=== PATIENT | female | born 1945 | race Hispanic/Latino ===

== ENCOUNTER 2016-10-17 05:49 | Inpatient (IN) | payer OTHER, MEDICAID ==
[~2016-10-17] VITALS: Ht 127 cm; Wt 88.0 kg
[2016-10-17] VITALS (14 sets, daily range): BP systolic 106–159; BP diastolic 63–95; PULSE 60–94; RESP 13–18; O2SAT 94–99
[2016-10-17] MEDS: Lactated Ringer's 1,000 ML IV SCH ×3 (05:00→07:40)
[~2016-10-17 05:49] MED LIST: ACET325T51 PO; ASPI-973 PO; Bupivacaine Liposome 1.3% 20 mL Inj INFILTRATE SCH; HYDR12.5 PO; LOSA100T29 PO; METO100T3 PO; MIRT15TA6 PO
[2016-10-17] MEDS ORDERED: CeFAZolin 2 Gm/50 mL D5W IV Premix IV ONE (06:00)
[2016-10-17] MEDS ORDERED: Vancomycin Inj 1,000 MG in IV Premix 1 EACH IV ONE (06:00)
[2016-10-17] MEDS ORDERED: CeFAZolin Inj 2 gm / 50mL D5W IV ONE (06:17)
[2016-10-17] MEDS ORDERED: 0.9% Sodium Chloride 100 ML ONE ×2 (07:22→07:23)
[2016-10-17] MEDS ORDERED: Tranexamic Acid 100 mg/mL 10 mL Inj ONE ×2 (07:22→07:23)
[2016-10-17] MEDS ORDERED: Bupivacaine-MPF 0.5% W/EPI 30 mL Inj INFILTRATE ONE (08:40)
[2016-10-17] MEDS ORDERED: 0.9% Sodium Chloride 10 mL Inj INFILTRATE ONE (08:40)
[2016-10-17] MEDS ORDERED: Lactated Ringer's 500 ML IV PRN (08:43)
[2016-10-17] MEDS ORDERED: Lactated Ringer's 1,000 ML IV SCH (08:43)
--- NOTE | 2016-10-17 08:43 | PCM.HPANE ---
Patient Data Date of Service: October 17, 2016 (0710) Surgeon Admitting Provider: Attending Provider:Chavez Cordero DO Primary Care Physician:Jessica Mariscal DO Other Provider:Grace Law Anesthesia Reason for Visit Right Knee Arthritis Ht/WT & BMI Height (Feet): 4 Height (Inches): 8.00 Weight (Kilograms): 64.860 Body Mass Index 32.00 Allergies Coded Allergies: No Known Allergies (Unverified , 10/11/16) Past Anesthesia History Anesthesia History: Denies:: Anesthesia Reactions Diabetes History Hx Diabetes?: No Medications Blood Thinner: Aspirin Hypertension Medication: Yes Home Meds Incl Beta Daksha: Yes Date Beta Daksha Taken: October 17, 2016 Time Beta Daksha Taken: 05 Reported Medications Mirtazapine 15 Mg [id number] Mg PO HS Ref 0 10/11/16 Metoprolol Tartrate 100 Mg [id number] Mg PO BID 30 Days Ref 0 10/11/16 Losartan Potassium 100 Mg Dosfzz260 Mg PO DAILY 10/11/16 Hydrochlorothiazide 12.5 Mg Svudkyy82.5 Mg PO DAILY 30 Days Ref 0 10/11/16 Aspirin 81 Mg Aepetw90 Mg PO DAILY Ref 0 10/11/16 Acetaminophen 325 Mg [id number] Mg PO Q4H PRN For Pain Ref 0 10/11/16 History History of ENT Problems?: No HEENT History: Denies:: Abnormal Airway Cataracts Difficult Intubation Dysphagia Glaucoma Hearing Problem Sinus Problem TMJ Denture Type: Partial- Upper Teeth Condition: Within Normal Limits Hx of Heart Problems?: Yes Cardiovascular History: Positive for:: Hypertension Hx of Respiratory Problem?: No Respiratory History: Denies:: Oxygen Administration Use of C-PAP Machine Hx Neurologic Problems?: No Hx of GI Problems?: No Hx of Problems?: No Female Hx: Denies:: Currently (hysterectomy) Hx Musculoskeletal Problems?: Yes Musculoskeletal History: Positive for:: Musculoskeletal Trauma (right knee current admission problem) Osteoarthritis Hx of Psycho/Social Problems?: Yes Psycho Social History: Positive for:: Anxiety Hx Depression Hx Surgeries?: Yes (hysterectomy) Hx Any Other Health Problems?: Yes Other History: Denies:: Cancer Thyroid Disease Hx Diabetes: No Hx Alcohol Use: NoHx Substance Use: NoHave You Smoked inLast 12 mo: No Stop/Bang S-Snoring: Do You Snore Loudly: No T-Tired: feel tired, fatigued: No O-Obsered: Observed not breath: No P-Blood Pressure: treated: Yes B- Body Mass Index > 35 kg/m2: No A- Age over 50: Yes N- Neck Large Circumference: No G- Gender Male: No LUIS ALBERTO Total Score: 2 Risk Assessment Category Category 1A: Patient has history of documented sleep apnea, and HAS NOT received any narcotic, sedative or anesthesia administration during this stay. Category 1B: Patient has history of documented sleep apnea, and HAS received any narcotic , sedative or anesthesia administration during this stay Category 2: Patient has SUSPECTED Obstructive Sleep Apnea, and HAS received any narcotic , sedative or anesthesia administration during this stay. Category 3: Patient has SUSPECTED Obstructive Sleep Apnea and HAS NOT received narcotic, sedative or anesthesia administration during this stay. Category 4: Outpatient in Procedural Areas with known sleep apnea or who screen positive for High Risk via the STOP/BANG questionnaire. Exam Exam Vital Signs Vital Signs Date Time Temp Pulse Resp B/P Pulse Ox O2 Delivery O2 Flow Rate FiO2 10/17/16 06:30 36.5 60 18 159/75 98 Room Air General Appearance: Alert, Oriented X3, Cooperative, No Acute Distress HEENT/AIRWAY: MP 2 Lungs: Clear to Auscultation Heart: Exam Unremarkable Meds/Labs/Diagnostics Admission Meds Current Medications Lactated Ringer's 1,000 ml @ 120 mls/hr Q8H20M IV Last administered on 05:53; Start 10/17/16 at 05:00; Stop 10/17/16 at 13:19 Vancomycin/0.9 % Sod Chloride/ Premix (Vancomycin Inj/ IV Premix) 200 ml @ 0 mls /hr PREOP ONCE IV Last administered on 10/17/16 06:25; Start 10/17/16 at 06:00 ; Stop 10/17/16 at 06:01; Status DC Plan Impression Patient chart reviewed, patient interviewed and anesthestic plan with risks, benefits, and alternatives discussed, and informed consent obtained. ASA Physical Status: ASA2 Mod Systemic Disease Anesthetic Plan: Regional Block (adductor canal), SAB Bene/Risks/Altern/Consents: Yes HP Complete Prior to Induction: Yes Alvin Whatley MD October 17, 2016 08:43
[2016-10-17] MEDS ORDERED: fentaNYL-PF 50 mCg/mL 2 mL Inj IVPUSH PRN (08:45)
[2016-10-17] MEDS ORDERED: Ondansetron 2 mg/mL 2 mL Inj IVPUSH PRN ×2 (08:45→11:05)
[2016-10-17] MEDS ORDERED: EPHEDrine Sulfate 50 mg/mL Inj IVPUSH PRN (08:45)
[2016-10-17] MEDS ORDERED: Phenylephrine 10,000 mCg/mL Inj IVPUSH PRN (08:45)
[2016-10-17] MEDS ORDERED: MetoCLOpramide 5 mg/mL 2 mL Inj IVPUSH PRN (08:45)
[2016-10-17] MEDS ORDERED: HYDROmorphone 1 mg/mL Inj IVPUSH PRN (08:45)
[2016-10-17] MEDS ORDERED: Dexamethasone 4 mg/mL Inj IVPUSH PRN (08:45)
[2016-10-17] MEDS ORDERED: Lactated Ringer's 1,000 ML IV ONE (10:32)
[2016-10-17] MEDS ORDERED: Ketorolac 15 mg/mL Inj IVPUSH PRN (11:05)
[2016-10-17] MEDS ORDERED: Magnesium Hydroxide 10 mL Oral Concentration PO PRN (11:05)
[2016-10-17] MEDS ORDERED: Polyethylene Glycol (PEG) 17 Gm Powder PO PRN (11:05)
[2016-10-17] MEDS ORDERED: diphenhydrAMINE 25 mg Capsule PO PRN (11:05)
[2016-10-17] MEDS ORDERED: HYDROmorphone 2 mg/mL Inj IVPUSH PRN (11:05)
--- NOTE | 2016-10-17 11:53 | OP ---
[address] [address] OPERATIVE REPORT PATIENT: NATASHA SPENCER : 1945 MR#: [id number] ADMIT: 10/17/2016 JOB ID: [id number] DATE OF SURGERY: 10/17/2016 PREOPERATIVE DIAGNOSIS(ES): Right knee degenerative joint disease, severe, with severe varus deformity and tibial bone loss. POSTOPERATIVE DIAGNOSIS(ES): Right knee degenerative joint disease, severe, with severe varus deformity and tibial bone loss. PROCEDURE: Right total knee revision type arthroplasty. SURGEON: Chavez Cordero DO. SCHOOL COUNSELLOR: Beronica Heath PA-C. INDICATIONS: The patient is a 71-year-old female, who recently presented from [place] with severe right knee deformity with a very difficult time with ambulation. We discussed treatment options for this. She had been offered a knee fusion for her severe deformity, and she wished a second opinion. She had deformity with uncontained medial defect of the tibia with a 1 cm defect below the level of the fibular head and a severe varus thrust gait. We discussed treatment options for this, and I recommended a revision type total knee arthroplasty using stem and augments. We discussed the risks, benefits and possible complications of surgery with an historic interpreter. All questions were answered, and she and her family wished to proceed. We discussed that she is at increased risk for perioperative complications given the increased complexity and severity of this surgical procedure over a standard total knee arthroplasty. A surgical elastic knitter was required for the successful completion of this procedure. PROCEDURE IN DETAIL: The patient was brought to the operating room. She was given a preoperative antibiotic and spinal anesthetic. The right lower extremity was sterilely prepped and draped. A surgical time-out was performed. A tourniquet was used for hemostasis. An incision was made over the anteromedial knee. Dissection was carefully carried through subcutaneous tissue. Electrocautery was used for hemostasis. A split was then made in the quad tendon leaving a cuff of tissue for repair. This was taken along the medial retinaculum and down onto the proximal medial tibial face. The patella was everted and the knee was taken into flexion. She was noted to have a significant rotational deformity of the femur, as well as a significant uncontained defect of the proximal medial tibia. An intramedullary fabricio was placed into the femur, and the distal femoral cut was performed taking the standard resection for a TC3 revision type femur. The tibia was addressed, and I made an initial intramedullary drill hole and then reamed this. However, it became clear that this hole was too posterior and actually reamed out the back of the tibia. Therefore, a new starting hole was placed more anteriorly. The patient had a very, very small tibia, and care was taken with Alverda and curette to ensure that we were wholly within the bone. This was reamed but could only be reamed up to a 10. Using the intramedullary cutting guide, the tibial resection was performed at just below the articular surface on the lateral side. However, this was inadequate, and an additional 4 mm was resected. Then, some additional resection was made laterally, as well as medially, to accommodate a 5 mm augment and to get to the bottom of her defect on the medial side. We then took the opening reamer proximally and the keel punch and trialed with the 1.5, and ultimately the size 1 tibia with a 5 mm augment and 75-mm press-fit stem. Then the rotation was set for the femur based on the tibia for the TC3 femoral component. The femoral cutting jig was pinned into position. The cuts were performed. Next, the box cut was performed. It was very difficult to perform the box cut and had to be performed essentially free hand, as the jig was simply too large for her very small bone. This was accomplished, and the knee was then trialed with polys working our way up to the 22.5, which allowed for full flexion and full extension with equal gaps medially and laterally, and excellent correction of her deformity. The patella was next resurfaced, cut from an initial thickness of 22 to a thickness of 14. Then, a 32 mm patellar button was chosen, drilled for, trialed and had excellent tracking. The bony surfaces were washed and dried, and the components were then cemented into position beginning with the DePuy Sigma MBT tray 1 tibia with a 5 mm augment and 75 mm stem, followed by the 22 mm TC3 poly and the size 2 TC3 femur, as well as 32 mm patellar button. All excess cement was removed, and the knee was held in extension while the cement was allowed to polymerize. The tourniquet was let down. Electrocautery was used for hemostasis. The wound was copiously irrigated and then closed with #1 Surgilon and 0 Vicryl. The subcu was closed with 2-0 and 3-0 Vicryl, and the skin was closed with a running subcuticular 3-0 V-Loc. Marcaine mixed with Exparel and saline was added as an adjunct local anesthetic. Sterile dressings were applied. This procedure took approximately twice the tourniquet time as a standard total knee arthroplasty. Blood loss was 50 cc. POSTOPERATIVE PROTOCOL: Have the patient weightbear to tolerance, use a walker as needed for ambulation and will plan to use aspirin for DVT prophylaxis and [place] 5/325 for pain.
[2016-10-17 12:01] LABS: APPEARANCE,URINE HAZY (CLEAR,HAZY); COLOR,URINE STRAW (YELLOW); OCCULT BLOOD,URINE TRACE (NEGATIVE); PH,URINE 6.5 (5.0-8.0); UROBILINOGEN,URINE NORMAL (NORMAL)
--- NOTE | 2016-10-17 12:08 | DRSVH ---
PROCEDURE: X-RAY RIGHT KNEE, ONE OR TWO VIEWS ([id number]) INDICATIONS: post op TECHNIQUE: 2 view(s) of the knee acquired. COMPARISON: [facility], CR, XR KNEE BILATERAL STANDING UP, 08/31/2016, 7:55. [facility], CR, XR KNEE 3VW RT, 08/22/2016, 16:48. FINDINGS: Bones: Patient is status post knee joint arthroplasty. Hardware components are in expected position s. Visualized bony structures are intact. Soft tissues: Overlying postoperative changes are noted. There is a large knee joint effusion conta ining air. Extensive soft tissue edema is present. No unexpected radiopaque foreign bodies are iden tified. IMPRESSION: Expected postoperative changes related to a total right knee arthroplasty. No periprosth etic fractures are evident. Dictated by: Kingsley Nunes M.D. on 10/17/2016 at 11:06 Approved by: Kingsley Nunes M.D. on 10/17/2016 at 11:07
--- NOTE | 2016-10-17 12:31 | PCM.ANEP1 ---
Post Anesthesia Phase 1 PACU Phase 1 Assessment Date of Service: October 17, 2016 (0710) Vital Signs Vital Signs Date Time Temp Pulse Resp B/P Pulse Ox O2 Delivery O2 Flow Rate FiO2 10/17/16 12:05 66 13 119/70 95 Room Air 10/17/16 11:50 69 15 122/71 96 Room Air 10/17/16 11:35 71 16 109/75 94 Room Air 10/17/16 11:30 72 14 106/64 96 Room Air 10/17/16 11:25 70 13 106/64 99 Simple Mask 8 10/17/16 11:20 36.4 69 13 106/63 99 Simple Mask 8 10/17/16 06:30 36.5 60 18 159/75 98 Room Air Anesthetic Administered: Regional Block, SAB Level of Alertness: Sleepy, easy to arouse VALE's with Equal Strength: Yes Pain: No Nausea or Vomiting: No Cardiovascular Function and Hy: No Oxygen Delivery: Simple Mask Lungs: Clear to Auscultation Complications: No Alvin Whatley MD October 17, 2016 12:31
[2016-10-17] MEDS ORDERED: EPHEDrine/NS 5 mg/mL 5 mL Syringe ONE (12:47)
[2016-10-17] MEDS ORDERED: Propofol 10,000 mCg/mL 20 mL Inj ONE (12:47)
[2016-10-17] MEDS ORDERED: fentaNYL-PF 50 mCg/mL 2 mL Inj ONE (12:47)
[2016-10-17] MEDS: 0.9% Sodium Chloride 1,000 ML IV SCH ×2 (13:00→21:04)
--- NOTE | 2016-10-17 14:41 | NUR ---
Post op Pt arrived on [facility] at 1340, geophysics professor used for Post op assessment, no complaints of pain/nausea/vomiting, some feeling in right leg. esvin wrap C/D/I. oriented to room and call light, family now at bedside, see post op assessment, care continued.
--- NOTE | 2016-10-17 15:55 | NUR ---
Evaluation completed. Please go to "Notes" then click on "Assessments and Notes" (bottom left corner of screen). Then select appropriate discipline tab on top of screen.
[2016-10-17] MEDS: Sodium Chloride LOK Flush 10 mL Syringe IV SCH (16:30)
[2016-10-17] MEDS: CeFAZolin Inj 2 GM in IV Premix 1 EACH IV SCH (17:03)
[2016-10-17] MEDS: HYDROcodone-APAP 5-325 mg Tablet PO PRN ×2 (17:07→23:49)
--- NOTE | 2016-10-17 19:18 | NUR ---
Pain Pt stated she was starting to have a little pain in her leg, administered 1 [place], pt stated pain gone
[2016-10-17] MEDS: Senna-Docusate 8.6-50 mg Tablet PO SCH (20:33)
[2016-10-18 00:19] VITALS: BP 123/74; PULSE 105; RESP 17; O2SAT 97
[2016-10-18] MEDS: Sodium Chloride LOK Flush 10 mL Syringe IV SCH ×3 (00:30→16:30)
[2016-10-18] MEDS: CeFAZolin Inj 2 GM in IV Premix 1 EACH IV SCH (00:48)
[2016-10-18] MEDS: 0.9% Sodium Chloride 1,000 ML IV SCH ×2 (00:48→15:27)
[2016-10-18] MEDS: hydrOXYzine Pamoate 25 mg Capsule PO PRN ×5 (02:54→22:04)
[2016-10-18] MEDS: HYDROcodone-APAP 5-325 mg Tablet PO PRN ×5 (02:55→22:04)
--- NOTE | 2016-10-18 03:55 | NUR ---
Pain Pt. denies pain yet in obvious discomfort with repositioning.Granddaughter who is a [employer] MAKER on [employer] here to interpret and states pt. waits to long/does not want to bother anyone.Plan agreed upon to med. routinely and po analgesia eff.VSS and ORTHOS WNL.Delroy. po fluids w/o c/o nausea and UOP qs via crowder.Lungs cl. bilat with RA sats in the mid to high 90s.Sleeping soundly at this time and resting more comfortably.Will cont. to monitor.
[2016-10-18 05:15] VITALS: BP 119/74; PULSE 101; RESP 17; O2SAT 97
[2016-10-18 07:25] LABS: BASOPHILS % (AUTO) 0.1 % (0-3); EOSINOPHILS % (AUTO) 0 % (0-5); Mean Corpuscular Hemoglobin 31.8 pg (27.0-35.0); Mean Corpuscular Volume 96.6 fL (81-100); NEUTROPHILS % (AUTO) 73.8 % (40-74); Platelet Count 195 bil/L (150-400)
--- NOTE | 2016-10-18 08:28 | PCM.PNORTH ---
Subjective Date of Service: October 18, 2016 Visit Information: Reason for Visit Right Knee Arthritis Surgery/Surgery Date RIGHT TOTAL KNEE 10/17/16 Post-Op Day # 1 Date of Admission: October 17, 2016 at 13:44 Hospital Day # Subjective Incisional pain. Her granddaughter who is a medical claims processor acts as automotive service consultant. Postop General: No Shortness of Breath, No Chest Pain, Good Appetite Pain Management: PO, Good Pain Control Objective Exam Objective Patient is seen sitting up in bed with family at bedside. Her granddaughter has been staying with her and ask as automotive service consultant. Vital Signs and I/O Vital Sign - Last Date Time Temp Pulse Resp B/P Pulse Ox O2 Delivery O2 Flow Rate FiO2 10/18/16 05:15 36.9 101 17 119/74 97 Room Air 10/17/16 11:25 8 Intake and Output 10/17/16 10/17/16 10/18/16 Cumulative From/Thru 15:00 23:00 07:00 10/11/16 11:32 - 10/18/16 05:51 Intake Total 1450 ml 1000 ml 2007 ml 4657 ml Output Total 250 ml 600 ml 800 ml 1650 ml Balance 1200 ml 400 ml 1207 ml 3007 ml Intake Oral 1000 ml 1000 ml IV Total 1450 ml 2007 ml 3657 ml Output Urine Total 200 ml 600 ml 800 ml 1600 ml Estimated Blood Loss 50 ml 50 ml # Bowel Movements 0 0 Lab & Micro Results Laboratory Tests Test 10/17/16 11:08 10/18/16 06:50 Urine Color Straw (YELLOW) Urine Appearance Hazy (CLEAR,HAZY) Urine pH 6.5 (5.0-8.0) Urine Specific [place] 1.010 (1.003-1.035) Urine Protein Negativemg/dL (NEG,TRACE) Urine Glucose (UA) Negativemg/dL (NEGATIVE) Urine Ketones Negativemg/dL (NEGATIVE) Urine Occult Blood Trace (NEGATIVE) Urine Nitrite Negative (NEGATIVE) Urine Bilirubin Negative (NEGATIVE) Urine Urobilinogen Normalmg/dL (NORMAL) Urine Leukocyte Esterase Negative (NEGATIVE) Urine RBC 3-10/hpf (0-2) Urine WBC 0-5/hpf (0-5) Urine Epithelial Cells Occasional/hpf (NONE-MOD) Urine Crystals None seen (NONE SEEN) Urine Bacteria None/hpf (NONE-FEW) Urine Hyaline Casts None/lpf (NONE) Urine Granular Casts None seen (NONE SEEN) Urine Waxy Casts None seen (NONE SEEN) Urine Red Blood Cell Casts None seen (NONE SEEN) Urine White Blood Cell Casts None seen (NONE SEEN) Urine Mucus None seen (None Seen) Urine Trichomonas None seen (NONE SEEN) Urine Yeast None (NONE SEEN) Urinalysis Comment None Urine Culture Reflexed Not indicated White Blood Count 7.1th/mm3 (3.8-10.1) Red Blood Count 2.64mil/mm3 (3.90-5.20) Hemoglobin 8.4g/dL (12.0-15.6) Hematocrit 25.5% (35.0-46.0) Mean Corpuscular Volume 96.6fL (81-100) Mean Corpuscular Hemoglobin 31.8pg (27.0-35.0) Mean Corpuscular Hemoglobin Concent 32.9% (32.0-37.0) Red Cell Distribution Width 12.3% (12.3-15.4) Platelet Count 195bil/L (150-400) Neutrophils (%) (Auto) 73.8% (40-74) Lymphocytes (%) (Auto) 13.0% (14-46) Monocytes (%) (Auto) 13.0% (4-12) Eosinophils (%) (Auto) 0% (0-5) Basophils (%) (Auto) 0.1% (0-3) Sodium Level 134mEq/L (134-144) Potassium Level 4.0mEq/L (3.5-5.2) Chloride Level 99mEq/L (97-108) Carbon Dioxide Level 23mmol/L (18-29) Blood Urea Nitrogen 13mg/dL (8-27) Creatinine 0.55mg/dL (0.57-1.00) Estimat Glomerular Filtration Rate 156mL/min (>59) Glucose Level 153mg/dL (60-99) Calcium Level 8.2mg/dL (8.5-10.1) Result Diagram: 10/18/16 0650 10/18/16 0650 General Appearance: Alert, Oriented X3, Cooperative, No Acute Distress Extremities: Distal Pulses Palpable, No Compartment Syndrom Noted, Thigh & Calf Soft/Nontender Postop Sensory Motor: Distal Motor Intact, NVI Distally SURGICAL WOUND : Wound Location/Description Dressing is clean, dry and intact Activity: Activity per PT, Ambulate with PT Catheters: Urethral 2 Way [place] Assessment & Plan Impression POD#1 status post right total knee arthroplasty Problems: Plan The patient underwent primary total knee arthroplasty with significant revision components due to large deficit of the tibia. Weightbearing: weightbearing as tolerated with front wheel walker DVT prophylaxis: EC aspirin 325 mg twice a day 6 weeks DC [place] today Physical therapy for transfers, progressive ambulation, therapeutic exercise Wound care: PA will change dressing on postop day 2 After dressing change, will place compression stockings. Due to short stature, patient may be able to use knee high stockings as thigh high Discharge plan: Discharge home tomorrow. Start outpatient physical therapy next week Follow-up plan: In [address] [facility] with PA for wound check and at [address] Cordero with x-rays Pain Management: Tylenol, Toradol, [place] 5 mg, Vistaril, Dilaudid IV VTE Prophylaxis: SCDs, Other (aspirin 325 mg twice a day) Resuscitation Status: CPR: Attempt Resuscitation Beronica Heath PA-C October 18, 2016 08:28
[2016-10-18] MEDS: Senna-Docusate 8.6-50 mg Tablet PO SCH ×2 (08:29→20:13)
[2016-10-18 09:44] VITALS: BP 98/62; PULSE 104; RESP 18; O2SAT 97
--- NOTE | 2016-10-18 16:06 | NUR ---
Evaluation completed. Please go to "Notes" then click on "Assessments and Notes" (bottom left corner of screen). Then select appropriate discipline tab on top of screen.
[2016-10-18 16:10] VITALS: BP 121/58; PULSE 71; RESP 18; O2SAT 93
--- NOTE | 2016-10-18 18:29 | NUR ---
Ambulation / Pain Pain controlled with 2 tabs Hydrocodone/APAP and Vistaril 25mg Q4hrs. Ambulating well SBA with FWW to bathroom with steady gait. Family plans on bringing in FWW with wheels for use.
[2016-10-18 20:10] VITALS: BP 113/63; PULSE 63; RESP 17; O2SAT 94
[2016-10-19] VITALS (7 sets, daily range): BP systolic 121–177; BP diastolic 63–92; PULSE 64–73; RESP 16–20; O2SAT 95–99
[2016-10-19] MEDS: Sodium Chloride LOK Flush 10 mL Syringe IV SCH ×3 (00:38→15:42)
--- NOTE | 2016-10-19 01:49 | NUR ---
Pain Pain well controlled with po analgesia.VSS and ORTHOS WNL.Dressing CDI.I&O qs.Up with FWW and moving well.Sleeping soundly at this time and resting comfortably.Will cont to monitor.
[2016-10-19] MEDS: 0.9% Sodium Chloride 1,000 ML IV SCH ×3 (01:56→23:04)
[2016-10-19] MEDS: HYDROcodone-APAP 5-325 mg Tablet PO PRN ×5 (02:16→21:52)
[2016-10-19] MEDS: hydrOXYzine Pamoate 25 mg Capsule PO PRN ×2 (02:16→06:48)
[2016-10-19 05:49] LABS: BASOPHILS % (AUTO) 0.4 % (0-3); EOSINOPHILS % (AUTO) 1.6 % (0-5); MONOCYTES % (AUTO) 14.7 % (4-12); Mean Corpuscular Volume 95.9 fL (81-100); NEUTROPHILS % (AUTO) 55.7 % (40-74); Platelet Count 180 bil/L (150-400)
--- NOTE | 2016-10-19 06:31 | PCM.PNORTH ---
Subjective Date of Service: October 19, 2016 Visit Information: Reason for Visit Right Knee Arthritis Surgery/Surgery Date RIGHT TOTAL KNEE 10/17/16 Post-Op Day # 2 Date of Admission: October 17, 2016 at 13:44 Hospital Day # Subjective Sterile Products Processor Luh is here with us this morning. Patient complains of nausea this morning. She is feeling a little better after a dose of Zofran, as long as she does not move around. She also complains of feeling weak and dizzy. Nurses report that her blood pressure is up today with systolic of 177. Patient's losartan were held yesterday. Patient ambulated 10- 15 feet with physical therapy yesterday. Postop General: No Shortness of Breath, No Chest Pain, Good Appetite Pain Management: PO, Good Pain Control Objective Exam Objective Patient is seen in bed. Her family is at bedside. Sourav from electrical estimator services is here with us this morning. She knew the patient from her surgical day. Vital Signs and I/O Vital Sign - Last Date Time Temp Pulse Resp B/P Pulse Ox O2 Delivery O2 Flow Rate FiO2 10/19/16 06:17 36.5 66 17 121/63 95 Room Air 10/17/16 11:25 8 Intake and Output 10/18/16 10/18/16 10/19/16 Cumulative From/Thru 15:00 23:00 07:00 10/11/16 11:32 - 10/19/16 06:17 Intake Total 440 ml 800 ml 5897 ml Output Total 250 ml 850 ml 2750 ml Balance 190 ml -50 ml 3147 ml Intake Oral 440 ml 800 ml 2240 ml IV Total 3657 ml Output Urine Total 250 ml 850 ml 2700 ml Estimated Blood Loss 50 ml # Bowel Movements 0 0 Lab & Micro Results Laboratory Tests Test 10/18/16 06:50 10/19/16 05:15 White Blood Count 7.1th/mm3 (3.8-10.1) 7.4th/mm3 (3.8-10.1) Red Blood Count 2.64mil/mm3 (3.90-5.20) 2.44mil/mm3 (3.90-5.20) Hemoglobin 8.4g/dL (12.0-15.6) 7.8g/dL (12.0-15.6) Hematocrit 25.5% (35.0-46.0) 23.4% (35.0-46.0) Mean Corpuscular Volume 96.6fL (81-100) 95.9fL (81-100) Mean Corpuscular Hemoglobin 31.8pg (27.0-35.0) 32.0pg (27.0-35.0) Mean Corpuscular Hemoglobin Concent 32.9% (32.0-37.0) 33.3% (32.0-37.0) Red Cell Distribution Width 12.3% (12.3-15.4) 12.5% (12.3-15.4) Platelet Count 195bil/L (150-400) 180bil/L (150-400) Neutrophils (%) (Auto) 73.8% (40-74) 55.7% (40-74) Lymphocytes (%) (Auto) 13.0% (14-46) 27.5% (14-46) Monocytes (%) (Auto) 13.0% (4-12) 14.7% (4-12) Eosinophils (%) (Auto) 0% (0-5) 1.6% (0-5) Basophils (%) (Auto) 0.1% (0-3) 0.4% (0-3) Sodium Level 134mEq/L (134-144) 132mEq/L (134-144) Potassium Level 4.0mEq/L (3.5-5.2) 3.8mEq/L (3.5-5.2) Chloride Level 99mEq/L (97-108) 97mEq/L (97-108) Carbon Dioxide Level 23mmol/L (18-29) 25mmol/L (18-29) Blood Urea Nitrogen 13mg/dL (8-27) 12mg/dL (8-27) Creatinine 0.55mg/dL (0.57-1.00) 0.53mg/dL (0.57-1.00) Estimat Glomerular Filtration Rate 156mL/min (>59) 162mL/min (>59) Glucose Level 153mg/dL (60-99) 121mg/dL (60-99) Calcium Level 8.2mg/dL (8.5-10.1) 8.2mg/dL (8.5-10.1) Result Diagram: 10/19/1651410/19/16514 General Appearance: Alert, Oriented X3, Cooperative, Mild Distress Extremities: Distal Pulses Palpable, No Compartment Syndrom Noted, Thigh & Calf Soft/Nontender Postop Sensory Motor: Distal Motor Intact, NVI Distally SURGICAL WOUND : Wound Location/Description Right knee: Surgical dressing is removed. Steri-Strips are intact. Wound is well approximated. There is moderate dried serous drainage on the bandage. There were a couple drops of serous drainage present. There is no ecchymosis or erythema. The wound was cleansed with hydrogen peroxide and dressed with Silverlon dressing, ABD pad and elastic bandage. Dressing & Drainage Status: Changed Activity: Activity per PT, Ambulate with PT Catheters: None Assessment & Plan Impression POD #2 Right total knee arthroplasty Problems: Plan Weightbearing: weightbearing as tolerated with front wheel walker DVT prophylaxis: EC aspirin 325 mg twice a day 6 weeks Patient is feeling weak and dizzy and her H&H has dropped since yesterday. She also has elevated blood pressure. I recommended transfusion of 1 unit of packed red blood cells. After much discussion patient consents to transfusion. Consent for transfusion was reviewed and signed. She also missed her diuretic this morning when she was nauseated. Now that her stomach is feeling better we will get her back on her usual medications. We will reinstate the losartan to help with her blood pressure. Physical therapy for transfers, progressive ambulation, therapeutic exercise, Patient is progressing well with therapy Wound care: PA changed dressing to Silverlon and AVD pad and elastic bandage. Elastic bandage pain be removed when compression stockings were placed. After dressing change, will place compression stockings. Due to short stature, patient may be able to use knee high stockings as thigh high Discharge plan: Discharge home tomorrow if medically stable. Start outpatient physical therapy next week Follow-up plan: In 2 weeks at [facility] with JOCELINE for wound check and at [address] Cordero with x-rays Pain Management: Zach Tom VTE Prophylaxis: SCDs, Other (aspirin 325 mg twice a day) Resuscitation Status: CPR: Attempt Resuscitation Bellerose TerraceBeronica Yeung PA-C October 19, 2016 06:31
--- NOTE | 2016-10-19 06:35 | PCM.DIORTH ---
Ortho Discharge Instruction Date of Service: October 19, 2016 Dates of Hospitalization Date of Hospital Admission October 17, 2016 at 13:44 Providers Admitting Physician: Chavez Cordero DO Primary Care Physician: Jessica Mariscal DO Attending Physician: Chavez Cordero DO Activity Discharge Activity-General: Be up and about, Balance rest and activity, Elevate & ice extremity, No driving while taking narcotic Right Lower Extremity: Weight Bearing as tolerated Discharge Assist Device: Front Wheeled Walker Dressing and Incisional Care Discharge Dressing Care: Keep dressing clean, dry & intact Discharge Hygiene: May shower (see instructions below), DO NOT soak incision under water, NO bathtub, hot tub or whirlpool Additional Instructions Discharge Instructions Weightbearing: weightbearing as tolerated with front wheel walker DVT prophylaxis: EC aspirin 325 mg twice a day 6 weeks Every hour of the day you are awake, get up and move - either do some walking or the exercises learned from therapy Push herself with bending and straightening the leg. It will be sore but it is good to push it with the bending. Wound care: change dressing every 2 days or sooner if needed. Do not remove the Steri Strips - we will remove them at the office in 2 weeks Shower instructions: the patient may shower if the wound has no drainage present x 24 hours. Wound may be uncovered to shower. Let soap and water run over the wound, pat dry and apply a new dressing. The compression stockings will hold the bandage in place. Wear compression stockings for 3-4 weeks. Start outpatient physical therapy next week Follow Up Plan Follow Up Plan Follow-up plan: In 2 weeks at [facility] with JOCELINE for wound check and at [address] Cordero with x-rays Call your provider for: Fever, Chills, Shortness of breath, Vomitting, Drainage at incision, Wound redness (that is spreading), Increasing pain (for no reason) Beronica Heath PA-C October 19, 2016 06:35
[2016-10-19] MEDS: Senna-Docusate 8.6-50 mg Tablet PO SCH ×2 (08:30→21:52)
[2016-10-19] MEDS ORDERED: diphenhydrAMINE 25 mg Capsule PO ONE (09:35)
[2016-10-19] MEDS ORDERED: 0.9% Sodium Chloride 250 ML ONE (11:04)
--- NOTE | 2016-10-19 17:33 | NUR ---
Social Work: Initial Assessment D: Per EMR review, pt is a 71 year old female admitted for Right Knee Arthritis. Pt is Coordinated Care Blind/Disabled with [facility] supplement. PCP is Jessica Early DO. NOK is Tosha Chahal, . Advanced directives not completed, pt declined AD info from admit nurse. Readmit score not entered at this time. CARPET MECHANIC met with pt and family at bedside with optical store manager. Sw role explained and contact info provided. Pt lives in [place] with her family in a single story home. Pt uses a cane and FWW at baseline but is otherwise I with ADLs. PT evaluation has been completed with recommendation for outpatient PT. Pt's family confirms that they have this arranged already for the pt. Pt's family will transport her when medically ready. They decline any other discharge needs or concerns. A: Pt who is I at baseline. P: Anticipate pt to discharge home via POV and outpatient PT; Family to transport. CARPET MECHANIC to continue to follow. ELIDIA Melchor Addendum: 10/19/16 at 1740 by EMMIE WYATT Amended: Links added.
--- NOTE | 2016-10-19 18:12 | NUR ---
BLOOD/POST-OP PROGRESS Patient consented to a blood transfusion. Maintainer Operator and Jesus Treviño was at the bedside. was at the bedside. 1 unit of blood was transfused without any adverse reactions noted. Hydrocodone 2 tabs PO has been effective for pain control. Patient rated her pain as 4/10, which is tolerable for her. Tolerating liquids PO and her diet well. Patient complained of nausea earlier this shift. Zofran 4 mg IVP administered, which was effective. No further complaints of nausea voiced. Denies SOB. Patient gets up with SBA and the FWW. Tolerates activity well. Dressing is CDI. Voiding without any problems. Patient complained of dizziness at the start of the shift. Patient denies dizziness after her blood transfusion. Family is at the bedside.
[2016-10-20 00:15] VITALS: BP 120/72; PULSE 67; RESP 17; O2SAT 94
[2016-10-20] MEDS: HYDROcodone-APAP 5-325 mg Tablet PO PRN ×4 (01:31→13:45)
[2016-10-20] MEDS: Sodium Chloride LOK Flush 10 mL Syringe IV SCH ×2 (01:31→08:30)
--- NOTE | 2016-10-20 02:03 | NUR ---
Pain After ambulating to the bathroom at beginning of shift patient complains of 10/10 right knee pain. 2tabs [place] PO given, and upon reassessment patient states that pain has improved. Right ankle is swollen and being elevated; patient states pain in ankle improves with pain medication. Will continue to monitor,and continue Q1 hour checks.
[2016-10-20] MEDS: hydrOXYzine Pamoate 25 mg Capsule PO PRN ×2 (04:42→12:06)
[2016-10-20 05:02] VITALS: BP 162/77; PULSE 72; RESP 17; O2SAT 97
--- NOTE | 2016-10-20 07:49 | PCM.PNORTH ---
Subjective Date of Service: October 20, 2016 Visit Information: Reason for Visit Right Knee Arthritis Surgery/Surgery Date RIGHT TOTAL KNEE 10/17/16 Post-Op Day # Date of Admission: October 17, 2016 at 13:44 Hospital Day # Subjective Patient is found awake and alert this morning and head of bed raised. She is well positioned. There is no complaint of pain and patient appears comfortable and in no distress. Patient's family member is at the bedside whom speaks [place]. There is also a medical imaging specialist present. We have discussed likely discharge to home today with family has caregivers and this plan is accepted. Patient indicates she will begin formal outpatient physical therapy on 10/25/2016. We have discussed the fact that we will try to obtain compression hose for patient today prior to discharge and if this is not possible based on sizing we will give patient measurements to take to a medical supply to obtain SUKHI hose for use at home. Patient raises question this morning regarding pain control and that she still feels some pain. I have discussed with her that there will be some pain and that we cannot completely eliminate this. I have explained to her that the control of her pain is the goal and keeping it at a level that is manageable. I believe patient and family member understood this. Postop General: No Shortness of Breath, No Chest Pain, Good Appetite Pain Management: PO, Good Pain Control Objective Exam Objective Alert and oriented 3 and pleasant. Blood transfusion accomplished on 10/19/2016, 1 unit PRBCs Hemoglobin 9.8, hematocrit 29.1 today on 10/20/2016. Postoperative dressing is clean dry and intact with Silverlon, ABDs and Jareth wrap per [place]. Calf and thigh are soft and nontender. Toe wiggle and sensation are intact at right lower extremity distally. Gait 50 feet on 10/18/2016 with PT. No PT on 10/19/2016 secondary to blood transfusion. Vital Signs and I/O Vital Sign - Last Date Time Temp Pulse Resp B/P Pulse Ox O2 Delivery O2 Flow Rate FiO2 10/20/16 05:02 36.4 72 17 162/77 97 Room Air 10/17/16 11:25 8 Intake and Output 10/19/16 10/19/16 10/20/16 Cumulative From/Thru 15:00 23:00 07:00 10/11/16 11:32 - 10/20/16 05:02 Intake Total 500 ml 900 ml 956 ml 8253 ml Output Total 1350 ml 2050 ml 6150 ml Balance 500 ml -450 ml -1094 ml 2103 ml Intake Oral 900 ml 956 ml 4096 ml IV Total 200 ml 3857 ml Packed Cells 300 ml 300 ml Output Urine Total 1350 ml 2050 ml 6100 ml Estimated Blood Loss 50 ml # Bowel Movements 0 Lab & Micro Results Laboratory Tests Test 10/19/16 15:36 10/20/16 05:00 Hemoglobin 10.0g/dL (12.0-15.6) 9.8g/dL (12.0-15.6) Hematocrit 29.6% (35.0-46.0) 29.1% (35.0-46.0) Result Diagram: 10/20/16 0500 10/19/16 0515 General Appearance: Alert, Oriented X3, Cooperative, No Acute Distress Extremities: No Compartment Syndrom Noted, Thigh & Calf Soft/Nontender Postop Sensory Motor: Distal Motor Intact, Movement in Toes, Distal Sensation Intact SURGICAL WOUND : Dressing & Drainage Status: Changed Activity: Activity per PT, Ambulate with PT (weightbearing as tolerated on the right lower extremity using front wheeled walker.) Catheters: None Assessment & Plan Impression Patient is a pleasant 71-year-old female whom is very concerned with her well- being and has a number of questions regarding her medical status at this time. She is understanding that she will likely discharge to home today with family has caregivers and that she is otherwise in reasonable condition to do so. Problems: Plan Postop day #3 from right total knee arthroplasty performed on 10/17/[address] Chavez Cordero. Continue weightbearing as tolerated on the right lower extremity using front wheeled walker. Continue formal physical therapy for mobility, gait and safety. Patient is scheduled to begin outpatient physical therapy on 10/25/2016. Continue by mouth pain medication in the form of [place] 5/325 one to 2 tablets by mouth every 4-6 hours when necessary pain and Vistaril 25 mg every 4-6 hours when necessary restlessness. Continue ASA 325 mg EC by mouth twice a day 6 weeks postop for DVT prophylaxis. Patient has received one unit PRBCs on 10/19/2016 and this morning her hemoglobin is 9.8 and hematocrit is 29.1. Interoperative dressing is clean dry and intact with a Silverlon, and ABDs and Jareth wrap. Jareth wrap will be removed when compression hose are applied today prior to discharge. Ice and elevate as needed to assist in pain and swelling control. Nursing please measure and fit bilateral thigh-high SUKHI hose's morning as soon as possible. If the appropriate size is not available please give patient a list of her measurements so that they may obtain these devices at a medical supply after discharge. Follow-up in [address] [facility] orthopedic clinic on prearranged appointment with [facility] for wound check and suture removal. Follow-up in [address] [facility] orthopedic clinic with Dr. Chavez Cordero with right 2 view knee x-rays on arrival. Discharge patient to home today with family has caregivers on 10/20/2016. VTE Prophylaxis: SCDs, Other (aspirin 325 mg twice a day 6 weeks postop for DVT prophylaxis) Resuscitation Status: CPR: Attempt Resuscitation James Tony PA-C October 20, 2016 07:49 James Tony PA-C October 20, 2016 07:49
[2016-10-20] MEDS ORDERED: HYDR-3797 PO (08:11)
[2016-10-20] MEDS ORDERED: ASPI325T32 PO (08:11)
[2016-10-20] MEDS ORDERED: HYDR-4003 PO (08:11)
[2016-10-20] MEDS: Senna-Docusate 8.6-50 mg Tablet PO SCH (08:48)
[2016-10-20 08:57] VITALS: BP 133/73; PULSE 84; RESP 16; O2SAT 96
[2016-10-20] MEDS: 0.9% Sodium Chloride 1,000 ML IV SCH (09:04)
--- NOTE | 2016-10-20 11:04 | NUR ---
Social Work: Readiness for Discharge D: EMR reviewed. Pt is on 3 of hospitalization. Pt uses a cane and FWW but is otherwise independent at baseline. Per PT evaluation, outpt PT is deemed medically necessary for pt after discharge. SW confirmed that pt's family arrange outpt PT. Pt's family will discharge pt home when ready. A: Pt who uses a cane and FWW but is otherwise independent at baseline. Outpatient PT has been deemed medically necessary for pt after discharge. P: Pt to discharge home with family via POV at discharge. Pt to attend outpt PT as per PT evaluation. Pt and family agreeable to discharge plan. ELIDIA Garrett
--- NOTE | 2016-10-20 12:26 | NUR ---
DISCHARGE Patient rates her pain as 5/10. Hydrocodone and Vistaril was administered PRN. Via FELDT scale patients pain level is 0/10 after her pain medication. Tolerating liquids PO and her diet well. Denies nausea. No emesis noted. Denies SOB. Patient has been getting up with SBA and the FWW. [place] hose were applied but she had problems ambulating with this on per PT. Swelling noted in her R foot. James Tony was made aware of this. The patient and her family were made aware RE: Importance of having the [place] hose on. They are agreeable to this. IV saline lock was d/cd. Discharge instructions, prescriptions and care notes was given to the patient and her granddaughter. Ther Warp Dyeing Vat Tender-Jacquie was there at all times during the discharge. All questions where answered with the crop production advisor at the bedside. Discharge pending till script for FWW is available. James Tony was made aware of this. Addendum: 10/20/16 at 1443 by ISABELL FIORE RN ADDENDUM: Prescription for FWW was given to the patient and her family. Discussed pain medications and pain control. James Tony was in this morning and discussed pain regimen extensively with the crop production advisor at the bedside. Discharged to home with her granddaughter and all her personal belongings. (Copy of D/C is in the chart).
--- NOTE | 2016-10-20 13:14 | PCM.DC.ORT ---
Discharge Summary Date of Service: October 20, 2016 Date of Hospital Admission: October 17, 2016 at 13:44 Date of Surgery: October 17, 2016 Date of Discharge: October 20, 2016 Reason for Hospitalization: Severe right knee osteoarthritis Procedures Performed: Right total knee arthroplasty with special revision componentry Hospital Course: Patient was admitted to the hospital on 10/17/2016 and upon cross-section was taken to the operating room where her procedure was performed without incident. Upon awakening patient was taken to the postoperative recovery unit and upon recovery from anesthesia was transferred to the orthopedic care unit where she participated with formal physical therapy. Patient underwent transfusion of 1 unit of packed red blood cells on 10/19/2016 for low H&H and this was recovered on 10/20/2016 and patient was determined to be prepared for discharge. Patient was subsequent a discharge to home with family has caregivers. Problems: (1) Arthritis of knee Status: Acute ICD Code: M17.10 Disposition: Discharge to home with family's caregivers Orthopedic Follow up Plan: In Two Weeks in my clinic (follow-up in 2 weeks, at [facility] orthopedic clinic on pre-arranged appointment for wound check and suture removal.) Discharge Instructions: Postop day #3 from right total knee arthroplasty performed on 10/17/[address] Chavez Cordero. Continue weightbearing as tolerated on the right lower extremity using front wheeled walker. Continue formal physical therapy for mobility, gait and safety. Patient is scheduled to begin outpatient physical therapy on 10/25/2016. Continue by mouth pain medication in the form of [place] 5/325 one to 2 tablets by mouth every 4-6 hours when necessary pain and Vistaril 25 mg every 4-6 hours when necessary restlessness. Continue ASA 325 mg EC by mouth twice a day 6 weeks postop for DVT prophylaxis. Patient has received one unit PRBCs on 10/19/2016 and this morning her hemoglobin is 9.8 and hematocrit is 29.1. Interoperative dressing is clean dry and intact with a Silverlon, and ABDs and Jareth wrap. Jareth wrap will be removed when compression hose are applied today prior to discharge. Ice and elevate as needed to assist in pain and swelling control. Nursing please measure and fit bilateral thigh-high SUKHI hose's morning as soon as possible. If the appropriate size is not available please give patient a list of her measurements so that they may obtain these devices at a medical supply after discharge. Follow-up in 2 weeks at [facility] orthopedic clinic on prearranged appointment with [facility] for wound check and suture removal. Follow-up in 6 weeks at [facility] orthopedic clinic with Dr. Cahvez Cordero with right 2 view knee x-rays on arrival. Discharge patient to home today with family has caregivers on 10/20/2016. Management Plan: Patient will be seen at 2 weeks, 6 weeks and 12 weeks postoperatively. Patient will be seen when necessary in the interim. Aspirin (Aspirin) 325 Mg Tablet 325 MG PO BID Hydrochlorothiazide (Hydrochlorothiazide) 12.5 Mg Capsule 12.5 MG PO DAILY Hydrocodone-Acetaminophen 5-325 mg (Hydrocodone-Acetaminophen 5-325 mg) 1 Each Tablet 1-2 TABLET PO Q4-6h PRN PRN For Moderate Pain Hydroxyzine Pamoate (HydrOXYzine Pamoate) 25 Mg Capsule 25 MG PO Q4-6h PRN PRN For Spasm and/or Restlessness Losartan Potassium (Losartan Potassium) 100 Mg Tablet 100 MG PO DAILY Metoprolol Tartrate (Metoprolol Tartrate) 100 Mg Tablet 100 MG PO BID Mirtazapine (Mirtazapine) 15 Mg Tablet 15 MG PO James Tony PA-C October 20, 2016 13:14
--- NOTE | 2016-10-20 13:19 | NUR ---
Social Work: Discharge D: EMR reviewed. Pt is on day 3 of hospitalization. Pt lives at home with family. A: Pt who uses a 4WW and cane at baseline. Pt for whom outpt PT has been deemed medically necessary. Pt requested script for FWW as 4WW is not recommended for rehabilitation per PT. P: James Maya MD wrote script for FWW and placed script in chart. Pt to discharge home today with family via POV. Pt and family aware of medical necessity to complete outpt PT and will follow-up with scheduling and appointments. Pt and family agreeable to discharge plan. ELIDIA Garrett
--- NOTE | 2016-10-20 13:56 | NUR ---
STUDENT NURSE SHIFT/DISCHARGE NOTE Pt rates pain at 5/10 pretty consistently. Family expressed concerns about the fact that pain is never completely relieved. Family s/w the this AM who advised pain meds are to reduce, but not completely eradicate pain. Pt and family expressed understanding of this. Pt discharged with family at 1350 this afternoon.
== END 2016-10-20 13:52 | disposition home or self-care (01) | DRG 302 ==
LOC: SAS 05:49 → EDUNIT# 10:15 → OSC 13:44
PROVIDERS: ADMIT Orthopaedic Surgery; ATTEND Orthopaedic Surgery
PROC: 0SRC0J9 Replacement of Right Knee Joint with Synthetic Substitute, Cemented, Open Approach (ICD-10-PCS; principal; 2016-10-17 07:30)
PROC: 30233N1 Transfusion of Nonautologous Red Blood Cells into Peripheral Vein, Percutaneous Approach (ICD-10-PCS; 2016-10-19)
DX: M17.11 Unilateral primary osteoarthritis, right knee (principal); I10 Essential (primary) hypertension; M21.161 Varus deformity, not elsewhere classified, right knee